=== PATIENT | female | born 2000 | race Two or more races ===

== ENCOUNTER 2020-11-08 20:46 | Observation (INO) | payer SELFPAY ==
[~2020-11-08] VITALS: Ht 152.4 cm; Wt 49.9 kg
[2020-11-08] MEDS: LACTATED RINGERS 1,000 ML IV SCH ×2 (22:22→23:59)
[2020-11-08 23:18] LABS: CLARITY URINE TURBID (CLEAR); COLOR URINE YELLOW (YELLOW); KETONES URINE NEGATIVE (NEGATIVE); LEUKOCYTE ESTERASE URINE 3+ (NEGATIVE); NITRITE URINE NEGATIVE (NEGATIVE); OCCULT BLOOD URINE NEGATIVE (NEGATIVE); PH URINE 7.5 (4.5-8.0); PROTEIN URINE NEGATIVE (NEGATIVE); SPECIFIC GRAVITY URINE 1.014 (1.005-1.030)
[2020-11-09] MEDS ORDERED: TERBUTALINE SULFATE 1MG/ML VIAL SUBCUT PRN (02:00)
[2020-11-09] MEDS ORDERED: RHO(D) IMMUNE GLOBULIN 300 MCG/SYR IM ONE (02:00)
[2020-11-09] MEDS ORDERED: AZITHROMYCIN 500 MG in DEXT 5% WATER 250 ML IV SCH (03:00)
[2020-11-09] MEDS ORDERED: BETAMETHASONE ACET/BETAMET 30 MG/5 ML VIAL IM SCH (03:00)
[2020-11-09] MEDS ORDERED: CEFAZOLIN 2,000 MG in DEXT 5% WATER 100 ML IV SCH (04:00)
== END 2020-11-09 05:36 | disposition left against medical advice (07) ==
LOC: 8 EST LDRP 20:46
PROVIDERS: ADMIT Obstetrics & Gynecology; ATTEND Obstetrics & Gynecology
DX: O62.9 Abnormality of forces of labor, unspecified (principal); O34.63 Maternal care for abnormality of vagina, third trimester; Z20.822 Contact with and (suspected) exposure to COVID-19; Z3A.39 39 weeks gestation of pregnancy
CPT/HCPCS: 59025; 76805; 76817; 76818; 81003; 87426; 96361; 96365; 96372; G0378; J0456; J0690; J0702; J3105; J7060; 99281; G0379

== ENCOUNTER 2020-11-15 21:07 | Observation (INO) | payer SELFPAY ==
[~2020-11-15] VITALS: Ht 152.4 cm; Wt 49.9 kg
[2020-11-15] MEDS ORDERED: LACTATED RINGERS 1,000 ML IV SCH (22:30)
[2020-11-15 23:06] LABS: CLARITY URINE CLOUDY (CLEAR); COLOR URINE YELLOW (YELLOW); KETONES URINE NEGATIVE (NEGATIVE); LEUKOCYTE ESTERASE URINE 3+ (NEGATIVE); NITRITE URINE NEGATIVE (NEGATIVE); OCCULT BLOOD URINE NEGATIVE (NEGATIVE); PROTEIN URINE NEGATIVE (NEGATIVE); UROBILINOGEN URINE 0.2 E.U./dL (0.2-1.0)
== END 2020-11-16 01:00 | disposition home or self-care (01) ==
LOC: 8 EST LDRP 21:07
PROVIDERS: ADMIT Obstetrics & Gynecology; ATTEND Obstetrics & Gynecology
DX: O62.9 Abnormality of forces of labor, unspecified (principal); O26.893 Other specified pregnancy related conditions, third trimester; R10.9 Unspecified abdominal pain; Z3A.39 39 weeks gestation of pregnancy
CPT/HCPCS: 59025; 76815; 76818; 81003; 96360; 96361; G0378; 99281